=== PATIENT | male | born 1985 | race Caucasian/White ===

== ENCOUNTER 2019-07-10 04:11 | Emergency (ER) | payer SELFPAY ==
[~2019-07-10] VITALS: Ht 167.6 cm; Wt 62.9 kg
[2019-07-10 04:16] VITALS: BP 133/98
[2019-07-10] MEDS ORDERED: LIDOcaine 1.5% w/epinephrine 1:200,000 5ml ampul IJ ONE (04:30)
[2019-07-10] MEDS ORDERED: TETanus/Pertussis (Acell)/Diphther VAC/PF (Tdap-Adult) 0.5ml syringe IMVAC ONE (04:30)
[2019-07-10] MEDS ORDERED: LIDOcaine 1% w/epiNEPHrine 1:200,000 30ml vial IJ ONE (04:40)
[2019-07-10] MEDS ORDERED: LIDOcaine 1% w/epiNEPHrine 1:200,000 30ml vial IM ONE (06:20)
== END 2019-07-10 06:55 | disposition home or self-care (01) ==
LOC: EDBD 04:13 → ER 04:13
DX: S61.211A Laceration without foreign body of left index finger without damage to nail, initial encounter (principal); S56.422A Laceration of extensor muscle, fascia and tendon of left index finger at forearm level, initial encounter; W26.8XXA Contact with other sharp object(s), not elsewhere classified, initial encounter; Y93.89 Activity, other specified; Y92.89 Other specified places as the place of occurrence of the external cause; Y99.8 Other external cause status
CPT/HCPCS: 12001; 73140; 90471; 99283